=== PATIENT | female | born 1960 | race Caucasian/White ===

== ENCOUNTER 2020-07-15 16:25 | Emergency (ER) | payer OTHER ==
[~2020-07-15] VITALS: Ht 160 cm; Wt 72.6 kg
[~2020-07-15 16:25] MED LIST: ATENOLOL 50MG T50 MG; FENTANYL PATCH75 MCG; KLONOPIN1 MG; MEDROLDOSEPACK PO; OXYCODONE HCL15 MG PO; PEPCID40 MG PO; SOMA350 MG
[2020-07-15] MEDS ORDERED: OLMESARTAN MEDO20 MG PO (16:36)
[2020-07-15] MEDS ORDERED: OXYCODONE HCL E30 MG PO (16:53)
[2020-07-15 16:58] VITALS: BP 160/78
== END 2020-07-15 16:59 | disposition home or self-care (01) ==
LOC: M.ERS 16:25
DX: G89.29 Other chronic pain (principal); Z76.0 Encounter for issue of repeat prescription; F13.20 Sedative, hypnotic or anxiolytic dependence, uncomplicated; F11.20 Opioid dependence, uncomplicated; I10 Essential (primary) hypertension

== ENCOUNTER 2021-05-17 13:58 | Emergency (ER) | payer OTHER ==
[~2021-05-17] VITALS: Ht 160 cm; Wt 81.2 kg
[~2021-05-17 13:58] MED LIST changes: +OLMESARTAN MEDO20 MG PO; +OXYCODONE HCL E30 MG PO
[2021-05-17] MEDS ORDERED: PROAIR HFA8.5 GM INH (14:13)
[2021-05-17] MEDS ORDERED: NORVASC10 MG PO (14:13)
[2021-05-17] MEDS ORDERED: KLONOPIN1 MG PO (14:14)
[2021-05-17] MEDS ORDERED: CALCIUM CARBON500 MG PO (14:14)
[2021-05-17] MEDS ORDERED: VITAMIN D325 MC3 PO (14:14)
[2021-05-17] MEDS ORDERED: CARVEDILOL25 MG PO (14:14)
[2021-05-17] MEDS ORDERED: FLUTICASONE PRO30 G1 TOP (14:15)
[2021-05-17] MEDS ORDERED: REMERON45 M1 PO (14:15)
[2021-05-17] MEDS ORDERED: CLOPIDOGREL75 MG PO (14:15)
[2021-05-17] MEDS ORDERED: XYZAL5 MG PO (14:15)
[2021-05-17] MEDS ORDERED: TIZANIDINE HCL4 M1 PO (14:16)
[2021-05-17] MEDS ORDERED: BENICAR40 MG PO (14:16)
[2021-05-17] MEDS ORDERED: TRAMADOL 50 MG50 MG PO (14:17)
[2021-05-17 16:34] VITALS: BP 125/75
== END 2021-05-17 16:34 | disposition home or self-care (01) ==
LOC: M.ERS 13:58
DX: G89.29 Other chronic pain (principal); M54.50 Low back pain, unspecified; M54.6 Pain in thoracic spine; M25.552 Pain in left hip; R10.84 Generalized abdominal pain; I10 Essential (primary) hypertension; M81.0 Age-related osteoporosis without current pathological fracture; R20.0 Anesthesia of skin; Z98.890 Other specified postprocedural states; Z79.899 Other long term (current) drug therapy; Z88.6 Allergy status to analgesic agent; Z91.048 Other nonmedicinal substance allergy status

== ENCOUNTER → 2021-07-20 | Outpatient (CLI) | payer OTHER ==
[~2021-07-20] MED LIST changes: +BENICAR40 MG PO; +CALCIUM CARBON500 MG PO; +CARVEDILOL25 MG PO; +CLOPIDOGREL75 MG PO; +FLUTICASONE PRO30 G1 TOP; +KLONOPIN1 MG PO; +NORVASC10 MG PO; +PROAIR HFA8.5 GM INH; +REMERON45 M1 PO; +TIZANIDINE HCL4 M1 PO; +TRAMADOL 50 MG50 MG PO; +VITAMIN D325 MC3 PO; +XYZAL5 MG PO
== END ==
LOC: M.LAB 12:17
PROVIDERS: ATTEND Internal Medicine Gastroenterology
DX: Z01.812 Encounter for preprocedural laboratory examination (principal); Z20.822 Contact with and (suspected) exposure to COVID-19

== ENCOUNTER 2021-09-16 16:35 | Emergency (ER) | payer OTHER ==
[~2021-09-16] VITALS: Ht 160 cm; Wt 77.1 kg
[2021-09-16 18:09] VITALS: BP 151/83
== END 2021-09-16 18:10 | disposition home or self-care (01) ==
LOC: M.ERS 16:35
DX: M25.552 Pain in left hip (principal); I10 Essential (primary) hypertension; Z90.5 Acquired absence of kidney; Z88.8 Allergy status to other drugs, medicaments and biological substances